=== PATIENT | female | born 1940 | race Caucasian/White ===

== ENCOUNTER 2019-09-27 14:27 | Outpatient (CLI) | payer MEDICARE, SELFPAY ==
--- NOTE | ~2019-09-27 | MM_ITS ---
EXAMINATION: MM screening henok BI w surinder HISTORY: Screening TECHNIQUE: Craniocaudal and mediolateral oblique 3-D tomosynthesis images were obtained and synthetic 2-D images were generated. CAD analysis was submitted and interpreted. COMPARISON: Comparison to multiple prior studies sequentially, with oldest reviewed study dated 01/17. BREAST PARENCHYMAL COMPOSITION: There are scattered areas of fibroglandular density. FINDINGS: There is no evidence of suspicious mass, calcification, or architectural distortion to sugg est malignancy in either breast. There has been no suspicious interval change. IMPRESSION: 1. No mammographic evidence of malignancy. 2. Recommend routine screening mammography in one year. BI-RADS Category 1: Negative Reviewed, dictated and finalized at location A.
== END 2019-09-27 14:28 | disposition home or self-care (01) ==
LOC: ANHIMG 14:33
PROVIDERS: PCP Obstetrics & Gynecology; Visit Provider Obstetrics & Gynecology
DX: Z12.31 Encounter for screening mammogram for malignant neoplasm of breast (principal)
CPT/HCPCS: 77063; 77067

== ENCOUNTER 2020-02-25 10:40 | Outpatient (NON) | payer MEDICARE, SELFPAY ==
[2020-02-25 23:29] LABS: SARS-CoV-2 RNA PCR Negative
== END 2020-02-25 10:41 ==
PROVIDERS: PCP Obstetrics & Gynecology
DX: R05 Cough (principal); Z20.822 Contact with and (suspected) exposure to COVID-19
CPT/HCPCS: C9803; U0003

== ENCOUNTER 2020-04-01 16:16 | Emergency (ER) | payer MEDICARE, SELFPAY ==
[2020-04-01] VITALS (32 sets, daily range): BP systolic 83–131; BP diastolic 60–81; PULSE 116–134; RESP 14–64; TEMP 36.2–36.7; O2SAT 86–100
--- NOTE | ~2020-04-01 | CT_ITS ---
EXAMINATION: CTA chest PE protocol DATE: 04/01/2020 18:10 INDICATION: Dyspnea and tachycardia. TECHNIQUE: Computed tomography (CT) pulmonary angiogram of the chest was performed with 100 mL Omnipa que-350 intravenous contrast. Additional 3D reconstructions utilizing coronal maximum intensity proje ction (MIP) were performed. Automated exposure control and iterative reconstruction technique were em ployed. The dose-length product was 615.64 mGy-cm. COMPARISON: None FINDINGS: Excellent contrast opacification of the pulmonary arteries. There is moderate streak artifact from de nse contrast in the superior vena cava and right atrium. Mild to moderate scattered respiratory motio n artifact. This decreases sensitivity in many of the smaller segmental and subsegmental pulmonary ar teries. Thin saddle pulmonary embolism with larger pulmonary arterial filling defects in the right m ain pulmonary artery with extension into anterior and posterior segmental pulmonary arteries of the r ight upper lobe and into the right lower lobar and a couple basilar segmental pulmonary arteries of t he right lower lobe. Additional pulmonary emboli in the left main pulmonary artery with extension int o the lingular and left upper and lower lobar pulmonary arteries. Patchy groundglass opacities throug hout both lungs with peripheral and lower lung predominance consistent with COVID pneumonia. Very sma ll bilateral pleural effusions. Relative enlargement of the right side of the hard with leftward bowi ng of the ventricular septum consistent with right heart strain. No pericardial effusion. A few small scattered calcified pulmonary nodules and large densely calcified left hilar and mediastinal lymph n odes consistent with old granulomatous disease. No pathologically enlarged abdominal or pelvic lympha denopathy. Small sliding-type hiatal hernia. There are bridging osteophytes at multiple levels in the spine, consistent with diffuse idiopathic skeletal hyperostosis (DISH). IMPRESSION: 1. Bilateral pulmonary embolism including a saddle embolism with moderate to large clot burden and wi th evidence of right heart strain. Dr. Sierra discussed these findings with Dr. Aldana at 6:27 PM. 2. Patchy bilateral lung disease with appearance favoring COVID pneumonia. Reviewed, dictated and finalized at location A. CUTTER IMPRESSION: 1. Bilateral pulmonary embolism including a saddle embolism with moderate to la rge clot burden and with evidence of right heart strain. Dr. Sierra discussed these findings with Dr. Aldana at 6:27 PM. 2. Patchy bilateral lung disease with appearance favoring COVID pneumonia.
--- NOTE | ~2020-04-01 | XR_ITS ---
EXAMINATION: XR chest 1V portable DATE: 04/01/2020 16:35 INDICATION: COVID positive. Shortness of breath. TECHNIQUE: frontal view of the chest was obtained. COMPARISON: Chest radiograph dated 04/01/2016 FINDINGS: Patchy airspace opacities throughout both lungs relatively sparing the left upper lung zone. Bulky ca lcified left hilar and mediastinal lymph nodes consistent with old granulomatous disease. The cardiom ediastinal silhouette is normal. There are bridging osteophytes at multiple levels in the spine, cons istent with diffuse idiopathic skeletal hyperostosis (DISH). IMPRESSION: 1. Patchy bilateral airspace opacities consistent with pneumonia. Reviewed, dictated and finalized at location A. EMIC DEPARTMENT CHAIR
--- NOTE | 2020-04-01 16:20 | ECG_ITS ---
Measurements Intervals [place] Rate: 131 P: 75 NH: 147 QRS: -12 QRSD: 78 T: 4 QT: 296 QTc: 437 Interpretive Statements SINUS TACHYCARDIA INCOMPLETE RIGHT BUNDLE BRANCH BLOCK LOW QRS VOLTAGE IN PRECORDIAL LEADS BASELINE ARTIFACT- I, II, III, AVR, AVL, AVF, V1-V6 ABNORMAL ECG Electronically Signed On 04-01-2020 17:08:44 SALES ACCOUNT COORDINATOR by Aravind Sharpe D.O.
[2020-04-01 16:49] LABS: Alveolar/Arterial O2 Gradient 150.5 mmHg; Base Excess ABG -7.3 mEq/l (+/-2.0); Fractional Inspired Oxygen 36 %; HCO3 ABG 15.9 mEq/l (22.0-26.0); Modified Allen's Test Pass; Oxygen Content ABG 16.4 %vol (16.0-22.0); Oxygen Saturation ABG 95.5 % (95.0-100.0); Oxyhemoglobin 93.6 % THb (90.0-100.0); PCO2 ABG 26.1 mmHg (35.0-45.0); PO2 ABG 75.9 mmHg (80.0-100.0); PO2 FiO2 Ratio Arterial Blood 2.11 %; Site Drawn RIGHT RADIAL; Total Hemoglobin 12.4 g/dL (12.0-18.0); pH ABG 7.402 (7.350-7.450)
[2020-04-01 16:50] LABS: Device NASAL CANNULA
--- NOTE | 2020-04-01 17:06 | ED.SOB ---
HPI - SOB/Dyspnea General Chief Complaint: Shortness of Breath/Dyspnea Stated Complaint: sob, weak. dc from [facility] Time Seen by Provider: 04/01/20 16:27 Source: patient Mode of arrival: ambulatory Limitations: no limitations History of Present Illness HPI Narrative: An 79-year-old female comes into the emergency department today with complaints of shortness of breath. Patient states that she knows she has Covid pneumonia. Patient was recently diagnosed admitted and treated at [facility]. Patient states that she was released. She notes that she is not certain why she was released. She does state that she is still having a great deal of shortness of breath. Patient states that this shortness of breath does feel somewhat different. She denies any chest pain at this time. She does endorse a cough. Patient states that she has not had a fever or any body aches but states she is having significant trouble with breathing. Related Data Home Medications Medication Instructions Recorded Confirmed Unable to Obtain Home Medications 04/01/20 04/01/20 Allergies Allergy/AdvReac Type Severity Reaction Status Date / Time erythromycin base Allergy Severe Rash Verified 04/01/20 16:21 Penicillins Allergy Severe Rash Verified 04/01/20 16:21 sulfamethoxazole Allergy Unknown HIVES Verified 04/01/20 16:21 trimethoprim Allergy Unknown HIVES Verified 04/01/20 16:21 AMOXICILLIN TRIHYDRATE Allergy Mild HIVES Uncoded 04/06/18 06:39 Molds and Smuts Allergy Mild HIVES Uncoded 04/06/18 06:39 POTASSIUM CLAVULANATE Allergy Mild HIVES Uncoded 04/06/18 06:39 Review of Systems Review of Systems: Narrative: CONSTITUTIONAL: Denies fever, chills, or sweats. EYES: Denies visual changes, redness, or discharge. ENT: Denies rhinorrhea, congestion, sore throat, or otalgia. CARDIOVASCULAR: Denies chest pain, palpitations, or edema. RESPIRATORY: Endorses dyspnea. GASTROINTESTINAL: Denies abdominal pain, nausea, vomiting, or diarrhea. GENITOURINARY: Denies dysuria or hematuria. SKIN: Denies rash or itching. MUSCULOSKELETAL: Denies back pain, joint pain, or myalgia. NEUROLOGIC: Denies headache, numbness, dizziness, or weakness. PSYCHIATRIC: Denies anxiety or depression. [facility] Social History Social History Gender identity (if verbalized by the patient): Female Exam Narrative: Exam Narrative: GENERAL: Well-appearing, well-nourished, and in no acute distress. HEAD: Normocephalic, atraumatic. EYES: PERRLA and EOMI. ENT: Nares clear, no rhinorrhea or epistaxis. Mucous membranes moist. NECK: Supple. No adenopathy or masses. No carotid bruits or JVD CHEST: Rhonchi/rales throughout, tachypnea HEART: Tachycardia. No murmur heard. Normal peripheral pulses. ABDOMEN: Soft, nontender, nondistended, normal active bowel sounds. EXTREMITIES: Normal range of motion. No edema. SKIN: Warm, dry, no rash. NEURO: No focal deficits. Alert and oriented x3. PSYCH: Normal mood and affect. Course Consultations Consultation #1: Was notified by Dr. Sierra, radiologist, that the patient has multiple bilateral pulmonary emboli with large clot burden. Patient is also found to have saddle embolus with right heart strain. Time: 18:35 Consultation #2: Spoke with Dr Noe, hospitalist for [facility]. He is unsure if interventional radiology is available after hours will call me back. Time: 19:20 Consultation #3: Spoke with [facility] transfer line, nurse practitioner Rox Fallon who initially accepted patient for transfer. After she was able to consult with the interventional radiologist the transfer line called me back and gave us a number for a Dr. Bello out at [facility]. I was able to contact Dr. Bello. No need to transfer to [facility] as [facility] should be able to take care of this. Time: 20:02 Additional Consultation(s): I was able to speak with Dr. Bello initially at 2009. Explained the situation. He was able to reach out
[2020-04-01 17:34] LABS: Basophils Absolute Auto 0.1 K/mm3 (0.0-0.1); Basophils Percent Auto 0.5 % (0.2-1.2); Eosinophils Percent Auto 0.1 % (0-4.4); Hematocrit 35.8 % (37.0-47.0); Hemoglobin 11.9 g/dL (12.0-15.0); Immature Granulocyte Absolute 0.53 K/mm3 (0.00-0.031); Immature Granulocyte Percent A 4.2 % (0-0.5); Lymphocytes Absolute Auto 0.84 K/mm3 (0.9-3.2); Lymphocytes Percent Auto 6.7 % (18.3-44.2); Mean Corpuscular HGB Conc 33.2 g/dl (32-36); Mean Corpuscular Hemoglobin 31.3 pg (26-34); Mean Corpuscular Volume 94.2 fl (80-100); Mean Platelet Volume 11.3 fl (7.4-10.4); Monocytes Absolute Auto 0.6 K/mm3 (0.1-0.6); Monocytes Percent Auto 4.5 % (2.6-8.5); Neutrophils Absolute Auto 10.5 K/mm3 (1.3-6.7); Platelet Count Result 199 k/mm3 (150-375); Red Cell Distribution Width 14.1 % (11.5-14.5); White Blood Count 12.6 K/mm3 (4.5-10.0)
--- NOTE | 2020-04-01 17:36 | PC.NURSE ---
john sent to [facility] awaiting response
[2020-04-01 17:43] LABS: INR 2.1; Prothrombin Time 23.8 Seconds (11.1-14.7)
[2020-04-01] MEDS: LACTATED RINGERS 1,000 ML 999 ML IV CONT (17:55)
[2020-04-01 18:48] LABS: Anion Gap 10 mmol/L (8-16); Blood Urea Nitrogen 25 mg/dL (7-17); Calcium 8.9 mg/dL (8.4-10.2); Carbon Dioxide 23 mmol/L (22-30); Chloride 105 mmol/L (98-107); Estimated Glomerular Filt Rate 43; Glucose 252 mg/dL (65-105); Potassium 4.8 mmol/L (3.4-5.0); Sodium 138 mmol/L (137-145)
--- NOTE | 2020-04-01 19:19 | PC.NURSE ---
Patient gave this nurse her 's phone number to call with updates [phone].
--- NOTE | 2020-04-01 20:23 | PC.NURSE ---
This nurse calls patients to give update on patient's status. This nurse informs him that the patient is being transferred to [facility] in [place].
--- NOTE | 2020-04-01 20:36 | PC.NURSE ---
2035 Jeniffer renae [facility] calls to given patient's room number of [id number] and phone number to call report [phone].
[2020-04-01 20:44] LABS: NT Pro B Type Natriuretic Pept 1630 PG/ML (5-100); Troponin I 0.392 ng/mL (0.000-0.034)
--- NOTE | 2020-04-01 20:48 | PC.NURSE ---
Called francesca for pt transfer. Eta @ [phone]
[2020-04-01] MEDS: HEPARIN SODIUM 5,000 UNITS/ML VIAL 4000 UNITS IV PUSH (21:15)
[2020-04-01] MEDS: HEPARIN SOD/D5W 100 UNITS/ML 25,000 UNITS/250 ML BAG 12 UNITS IV CONT (21:31)
--- NOTE | 2020-04-01 21:47 | PC.NURSE ---
This nurse calls patient's to inform him that the patient is leaving via [facility]. Gave him room number of [id number].
== END 2020-04-01 22:01 | disposition short-term general hospital (02) ==
PROVIDERS: General Practice; Emergency Provider Emergency Medicine; PCP Obstetrics & Gynecology
DX: U07.1 COVID-19 (principal); J12.82 Pneumonia due to coronavirus disease 2019; I26.02 Saddle embolus of pulmonary artery with acute cor pulmonale; R00.0 Tachycardia, unspecified; I45.10 Unspecified right bundle-branch block
CPT/HCPCS: 36415; 36600; 71045; 71275; 80048; 82805; 83880; 84484; 85025; 85610; 93005; 96361; 96374; 99285; J1644; J7120; Q9967

== ENCOUNTER 2020-04-27 11:59 | Outpatient (NON) | payer MEDICARE, SELFPAY ==
[2020-04-27 12:30] LABS: INR 2.4; Prothrombin Time 26.7 Seconds (11.1-14.7)
== END 2020-04-27 12:00 ==
LOC: HOME HLTH 12:06
PROVIDERS: PCP Obstetrics & Gynecology; Visit Provider Hospitalist
DX: I26.02 Saddle embolus of pulmonary artery with acute cor pulmonale (principal); J96.01 Acute respiratory failure with hypoxia; J12.82 Pneumonia due to coronavirus disease 2019; U07.1 COVID-19
CPT/HCPCS: 85610

== ENCOUNTER 2021-03-01 12:02 | Emergency (ER) | payer MEDICARE, SELFPAY ==
[2021-03-01] VITALS (9 sets, daily range): BP systolic 154–156; BP diastolic 76–93; PULSE 75–94; RESP 12–20; TEMP 36.9; O2SAT 100
--- NOTE | ~2021-03-01 | XR_ITS ---
EXAMINATION: XR chest 1V portable DATE: 03/01/2021 13:33 INDICATION: Transient alteration of awareness. TECHNIQUE: A single frontal view of the chest was obtained. COMPARISON: Chest single view 04/01/2020, chest CT 04/01/2020 FINDINGS: There is mild atelectasis in the lower lung zones. No pleural effusion or pneumothorax. The heart size is normal. Calcified left hilar and mediastinal lymph nodes are consistent with old granu lomatous disease. IMPRESSION: 1. Mild atelectasis in the lower lung zones. Reviewed, dictated and finalized at location B. RA TECHNICIAN
--- NOTE | ~2021-03-01 | CT_ITS ---
EXAMINATION: CT brain wo con DATE: 03/01/2021 13:38 INDICATION: Altered mental status. TECHNIQUE: Computed tomography (CT) of the head was performed without intravenous contrast. The mA wa s adjusted according to patient size. Iterative reconstruction technique was employed. The dose-lengt h product was 605.33 mGy-cm. COMPARISON: None FINDINGS: There is no intracranial hemorrhage, acute infarction, or abnormal intracranial mass lesion . There are scattered areas of low attenuation in the cerebral white matter, which is within normal l imits for the patient's age. The ventricles are normal in size. There is mucosal thickening in the p aranasal sinuses. There are likely changes of ocular lens replacement surgeries. There is a trace lef t mastoid effusion. IMPRESSION: 1. Normal aging brain. Reviewed, dictated and finalized at location B. STER COOK IMPRESSION: 1. Normal aging brain.
[2021-03-01 14:06] LABS: Basophils Absolute Auto 0.1 K/mm3 (0.0-0.1); Basophils Percent Auto 0.5 % (0.2-1.2); Eosinophils Absolute Auto 0.1 K/mm3 (0-0.3); Eosinophils Percent Auto 0.5 % (0-4.4); Hemoglobin 11.6 g/dL (12.0-15.0); Immature Granulocyte Absolute 0.04 K/mm3 (0.00-0.031); Immature Granulocyte Percent A 0.4 % (0-0.5); Lymphocytes Absolute Auto 1.48 K/mm3 (0.9-3.2); Lymphocytes Percent Auto 15.5 % (18.3-44.2); Mean Corpuscular HGB Conc 33.1 g/dl (32-36); Mean Corpuscular Hemoglobin 31.9 pg (26-34); Mean Corpuscular Volume 96.2 fl (80-100); Mean Platelet Volume 10.5 fl (7.4-10.4); Monocytes Absolute Auto 0.8 K/mm3 (0.1-0.6); Monocytes Percent Auto 8.5 % (2.6-8.5); Neutrophils Absolute Auto 7.1 K/mm3 (1.3-6.7); Neutrophils Percent Auto 74.6 % (45.5-73.1); Platelet Count Result 174 k/mm3 (150-375); Red Blood Count 3.64 M/mm3 (4.2-5.4); Red Cell Distribution Width 13.1 % (11.5-14.5); White Blood Count 9.5 K/mm3 (4.5-10.0)
[2021-03-01 14:16] LABS: Alanine Aminotransferase 47 U/L (4-35); Alkaline Phosphatase 225 U/L (38-126); Anion Gap 10 mmol/L (8-16); Aspartate Amino Transferase 42 U/L (14-36); Bilirubin,Total 0.6 mg/dL (0.2-1.3); Blood Urea Nitrogen 20 mg/dL (7-17); Calcium 9.3 mg/dL (8.4-10.2); Carbon Dioxide 25 mmol/L (22-30); Chloride 104 mmol/L (98-107); Estimated CRCL calculation 44 ml/min; Estimated Glomerular Filt Rate 60; Glucose 113 mg/dL (65-110); Potassium 3.7 mmol/L (3.4-5.0); Sodium 139 mmol/L (137-145)
[2021-03-01 14:17] LABS: INR 1.7; Prothrombin Time 19.4 Seconds (11.1-14.7)
[2021-03-01 14:18] LABS: Partial Thromboplastin Time 36.3 SECONDS (22.3-36.8)
[2021-03-01 14:28] LABS: Add Urine Microscopic? YES; Appearance Urine Cloudy (Clear); Bilirubin Urine Negative (Negative); Blood Urine Negative (Negative); Color Urine Amber (Yellow); Glucose Urine UA Negative (Negative); Ketones Urine Negative (Negative); Leukocyte Esterase Ur 2+ LEU/UL (Negative); Nitrate Urine Positive (Negative); Protein Urine 1+ mg/dL (Negative); Specific Grav Ur 1.026 (1.001-1.035); Urobilinogen Urine Negative mg/dL (<2.0)
--- NOTE | 2021-03-01 16:30 | ED.GENADULT ---
HPI - General Adult General Chief complaint: Altered Mental Status Stated complaint: AMS Time Seen by Provider: 03/01/21 13:10 Source: patient and family () Mode of arrival: ambulatory Limitations: no limitations History of Present Illness HPI narrative: Patient is a 80-year-old female with chief complaint changes in mental status and memory for past 5 days. Patient denies having any pain, fever, chills, nausea, vomiting, diarrhea. Patient's reports that the patient has been more confused than usual. He reports that she saw her psychiatrist today and they sent her to the emergency department as a suspect the patient may have a urinary tract infection. He reports the patient has had urinary tract infections in the past which has caused her to be altered. However he states that he wants to make sure that there is not something more going on. He states that he wonders if she was having burning changes as she has also been alternating her nights and days. reports the patient has a urinary tract infections in the past but cannot recall her last infection. Patient denies having any planks. Related Data Allergies Allergy/AdvReac Type Severity Reaction Status Date / Time erythromycin base Allergy Severe Rash Verified 03/01/21 12:09 Penicillins Allergy Severe Rash Verified 03/01/21 12:09 sulfamethoxazole Allergy Unknown HIVES Verified 03/01/21 12:09 trimethoprim Allergy Unknown HIVES Verified 03/01/21 12:09 AMOXICILLIN TRIHYDRATE Allergy Mild HIVES Uncoded 04/06/18 06:39 Molds and Smuts Allergy Mild HIVES Uncoded 04/06/18 06:39 POTASSIUM CLAVULANATE Allergy Mild HIVES Uncoded 04/06/18 06:39 Review of Systems Review of Systems: CONSTITUTIONAL: Denies fever, chills, or sweats. EYES: Denies visual changes, redness, or discharge. ENT: Denies rhinorrhea, congestion, sore throat, or otalgia. CARDIOVASCULAR: Denies chest pain, palpitations, or edema. RESPIRATORY: Denies cough or dyspnea. GASTROINTESTINAL: Denies abdominal pain, nausea, vomiting, or diarrhea. GENITOURINARY: Denies dysuria or hematuria. SKIN: Denies rash or itching. MUSCULOSKELETAL: Denies back pain, joint pain, or myalgia. NEUROLOGIC: Reports abdominal status denies headache, numbness, dizziness, or weakness. PSYCHIATRIC: Denies anxiety or depression. [facility] Social History Social History Gender identity (if verbalized by the patient): Female Exam Narrative: GENERAL: Well-appearing, well-nourished, and in no acute distress. HEAD: Normocephalic, atraumatic. EYES: PERRLA and EOMI. CHEST: Clear to auscultation. No respiratory distress. No wheezes rales or rhonchi HEART: Regular rate and rhythm. ABDOMEN: Soft, nontender, nondistended, normal active bowel sounds. EXTREMITIES: Normal range of motion. No acute edema. SKIN: Warm, dry, no rash. NEURO: No focal deficits. Alert and oriented to place time and situation. Patient does have some confusion on the date but knows the month. Patient able to follow commands. Facial paralysis not noted.Patient able to move upper and lower extremities. PSYCH: Normal mood and affect. Course Vital Signs Vital signs: Vital Signs Temperature 98.4 F 03/01/21 12:05 Pulse Rate 94 03/01/21 12:05 Respiratory Rate 17 03/01/21 12:05 Blood Pressure 156/93 H 03/01/21 12:05 Pulse Oximetry 100 03/01/21 12:05 Temperature 98.4 F 03/01/21 12:05 Pulse Rate 78 03/01/21 16:49 Respiratory Rate 19 03/01/21 16:49 Blood Pressure 154/76 H 03/01/21 16:49 Pulse Oximetry 100 03/01/21 12:05 Medical Decision Making MDM Narrative Medical decision making narrative: Patient is nontoxic in appearance. Patient work-up has been essentially normal except for findings of nitrate positive urine suggesting UTI. Patient's states that she is taking cephalosporins in the past without adverse reaction. Patient given Rocephin in the emergency department. Patient
== END 2021-03-01 17:04 | disposition home or self-care (01) ==
PROVIDERS: Emergency Provider Emergency Medicine
DX: N30.00 Acute cystitis without hematuria (principal); R91.8 Other nonspecific abnormal finding of lung field
CPT/HCPCS: 36415; 70450; 71045; 80053; 81001; 85025; 85610; 85730; 96365; 99284; J0696